=== PATIENT | male | born 1990 | race Caucasian/White ===

== ENCOUNTER 2023-04-08 03:34 | Emergency (ER) | payer OTHER ==
[2023-04-08] MEDS ORDERED: KETOROLAC 30 MG/ML INJ ONE (04:31)
[2023-04-08 04:42] LABS: Absolute Lymphocytes (CBC) 3.2 K/uL (0.7-4.9); Hematocrit 48.6 % (39.6-49.0); Lymphocytes % 41.8 % (15.3-44.8); MCV 81.5 fL (80-100); MPV 7.7 fL (7.6-11.3); RBC Red Blood Cell Count 5.96 M/uL (4.33-5.43)
[2023-04-08 04:45] LABS: Specific Gravity 1.015 (1.005-1.030); Urine Bacteria None Seen /HPF (<20); Urine Bilirubin NEGATIVE (Negative); Urine Blood 1+ (Negative); Urine Clarity Turbid (Clear); Urine Color Colorless (Yellow); Urine Glucose NEGATIVE (Negative); Urine Mucus Slight /HPF (None Seen); Urine Protein NEGATIVE (Negative); Urine RBC 21-50 /HPF (None Seen); Urine Urobilinogen Normal (Normal); Urine pH 7.5 (5.0-7.0)
[2023-04-08 05:02] LABS: Albumin 3.9 g/dL (3.4-5.0); Bilirubin Total 0.4 mg/dL (0.2-1.0); Potassium 2.9 mEq/L (3.5-5.1); Protein, Total 7.5 g/dL (6.4-8.2); Troponin High Sensitivity 36.1 pg/mL (<58.9)
[2023-04-08] MEDS ORDERED: ONDANSETRON 4 MG/2 ML VIAL ONE (05:35)
[2023-04-08] MEDS ORDERED: NA CHLORIDE 0.9% 1,000 ML ONE (05:35)
--- NOTE | 2023-04-08 06:54 | ER ---
Nurse's Notes [facility] Name: Nicol Courtney Age: 32 yrs Sex: Male : 1990 Arrival Date: 04/08/2023 Time: 03:34 Bed 13 Private MD: Diagnosis: Calculus of ureter Presentation: 04/08 03:44 Chief complaint: Patient states: "I was laying down going to bed and started having bad vc1 back pain that moved to my front then I started getting tingling on the left side of my face now it is on both legs and hands.". Coronavirus screen: Vaccine status: Patient reports being unvaccinated. Client denies travel out of the [place] in the last 14 days. At this time, the client does not indicate any symptoms associated with coronavirus-19. Ebola Screen: Patient negative for fever greater than or equal to 101.5 degrees Fahrenheit, and additional compatible Ebola Virus Disease symptoms Patient denies exposure to infectious person. Patient denies travel to an Ebola-affected area in the 21 days before illness onset. No symptoms or risks identified at this time. Initial Sepsis Screen: Does the patient meet any 2 criteria? RR > 20 per min. HR > 90 bpm. Yes Does the patient have a suspected source of infection? Yes: Acute abdominal pain. Risk Assessment: Do you want to hurt yourself or someone else? Patient reports no desire to harm self or others. Onset of symptoms was April 08, 2023. 03:44 Method Of Arrival: Ambulatory vc1 03:44 Acuity: AUGUST 3 vc1 Triage Assessment: 03:50 General: Appears uncomfortable, Behavior is anxious, restless. Pain: Complains of pain vc1 in left low back Pain radiates to left upper quadrant and left lower quadrant Pain currently is 10 out of 10 on a pain scale. Quality of pain is described as sharp. EENT: No deficits noted. No signs and/or symptoms were reported regarding the EENT system. Neuro: Level of Consciousness is awake, alert, obeys commands, Oriented to person, place, time, situation, Appropriate for age. Cardiovascular: No deficits noted. Respiratory: Airway is patent Respiratory effort is even, unlabored, Respiratory pattern is regular, symmetrical. GI: Reports lower abdominal pain, upper abdominal pain. : No deficits noted. No signs and/or symptoms were reported regarding the genitourinary system. Derm: No deficits noted. No signs and/or symptoms reported regarding the dermatologic system. Musculoskeletal: Reports pain in left low back. Historical: - Allergies: 03:48 No Known Allergies; vc1 - Home Meds: 03:48 Mydayis oral [Active]; vc1 - PMHx: 03:48 adhd; vc1 - PSHx: 03:48 None; vc1 - Immunization history:: Client reports having NOT received the Covid vaccine. - Social history:: Smoking status: Patient denies any tobacco usage or history of. - Family history:: not pertinent. Screenin:[facility] ED Fall Risk Assessment (Adult) History of falling in the last 3 months, vc1 including since admission No falls in past 3 months (0 pts) Confusion or Disorientation No (0 pts) Intoxicated or Sedated No (0 pts) Impaired Gait No (0 pts) Mobility Assist Device Used No (0 pt) Altered Elimination No (0 pt) Score/Fall Risk Level 0 - 2 = Low Risk Oriented to surroundings, Maintained a safe environment, Educated pt \\T\\ family on fall prevention, incl call for assistance when getting out of bed. Abuse screen: Denies threats or abuse. Nutritional screening: No deficits noted. Tuberculosis screening: No symptoms or risk factors identified. Assessment: 05:54 Reassessment: No changes from previously documented assessment. Patient and/or family vc1 updated on plan of care and expected duration. Pain level reassessed. Patient is alert, oriented x 3, equal unlabored respirations, skin warm/dry/pink. GI: Reports lower abdominal pain, upper abdominal pain, nausea. 06:45 Reassessment: No changes from previously documented assessment. Patient and/or family vc1 updated on plan of care and expected duration. Pain level reassessed. Patient is alert, oriented x 3, equal unlabored respirations, skin warm/dry/pink. 07:18 Reassessment: Patient states feeling better. Patient states symptoms have improved. vc1 Vital Signs: 03:44 BP 187 / 122; Pulse 102; Resp 24; Temp 98.9; Pulse Ox 100% ; Weight 117.93 kg; Height 6 vc1 ft. 4 in. ; Pain 10/10; 05:54 BP 179 / 122; Pulse 88; Resp 20; Pulse Ox 100% ; vc1 06:02 BP 163 / 108; Pulse 92; Resp 18; Pulse Ox 100% on R/A; jw7 03:44 Body Mass Index 31.65 (117.93 kg, 193.04 cm) vc1 03:44 Pain Scale: Adult vc1 ED Course: 03:35 Patient arrived in ED. ja2 03:35 Leighton Strange MD is Attending Physician. rt 03:44 Aniya Ramos, SUZY is Primary Nurse. vc1 03:48 Triage completed. vc1 03:50 Arm band placed on right wrist. vc1 03:51 Patient has correct armband on for positive identification. Bed in low position. Client vc1 placed on continuous cardiac and pulse oximetry monitoring. NIBP monitoring applied. 03:54 Inserted saline lock: 20 gauge in right forearm, using aseptic technique. Blood ha1 collected. 05:24 CT Abd/Pelvis - IV Contrast Only In Process Unspecified. EDMS 06:53 Missael Wilkes MD is Referral Physician. rt 07:18 No provider procedures requiring assistance completed. IV discontinued, intact, vc1 bleeding controlled, No redness/swelling at site. Pressure dressing applied. Administered Medications: 04:25 Drug: TORadol - Ketorolac IVP 15 mg Route: IVP; Site: right antecubital; vc1 07:20 Follow up: Response: No adverse reaction; Marked relief of symptoms vc1 05:19 CANCELLED (Patient Refused): morphine IVP or IV 4 mg IVP once over 4 mins kl 05:32 Drug: NS 0.9% IV 1000 ml Route: IV; Rate: 1 bolus; Site: right antecubital; ha1 06:32 Follow up: IV Status: Completed infusion; IV Intake: 1000ml vc1 05:32 Drug: Ondansetron IVP 4 mg Route: IVP; Site: right antecubital; ha1 07:20 Follow up: Response: No adverse reaction; Marked relief of symptoms vc1 Medication: 03:50 VIS not applicable for this client. vc1 Intake: 06:32 IV: 1000ml; Total: 1000ml. vc1 Outcome: 06:53 Discharge ordered by . rt 07:18 Discharged to home ambulatory. vc1 07:18 Condition: good 07:18 Discharge instructions given to patient, Instructed on discharge instructions, follow up and referral plans. medication usage, Demonstrated understanding of instructions, follow-up care, medications, Prescriptions given X 3. 07:18 Patient left the ED. vc1 Signatures: Dispatcher [employer] EDMS Macie Bangura2 Aniya Ramos RN RN vc1 Carla Norman7 Veronica Parker RN RN ha1 Leighton Strange MD MD rt Lewis, Kimberly RN kl Corrections: (The following items were deleted from the chart) 03:50 03:48 Home Meds: None; 1 1 03:50 03:48 PMHx: None; 1 1 03:50 03:48 PMHx: Mydayis; vc1 1
--- NOTE | 2023-04-08 06:54 | EDPHYS ---
Physician Documentation [facility] Name: Nicol Courtney Age: 32 yrs Sex: Male : 1990 Arrival Date: 04/08/2023 Time: 03:34 Bed 13 Private MD: ED Physician Leighton Strange HPI: 04/08 06:13 This 32 yrs old Male presents to ER via Ambulatory with complaints of Nausea, Back rt Pain, Chest Pain. 06:13 Patient presents to the ED with a left flank pain that radiates to the suprapubic rt region as well as nausea vomiting she attributes to the pain. This occurred at about 3 AM which woke him up from sleep. Is never had similar symptoms. Pain is sharp in nature, severe in severity, no other aggravating or elevating factors. Denies other acute complaints.. Historical: - Allergies: 03:48 No Known Allergies; vc1 - Home Meds: 03:48 Mydayis oral [Active]; vc1 - PMHx: 03:48 adhd; vc1 - PSHx: 03:48 None; vc1 - Immunization history:: Client reports having NOT received the Covid vaccine. - Social history:: Smoking status: Patient denies any tobacco usage or history of. - Family history:: not pertinent. ROS: 06:13 Constitutional: Negative for fever, chills, and weight loss, Cardiovascular: Negative rt for chest pain, palpitations, and edema, Skin: Negative for injury, rash, and discoloration, Neuro: Negative for headache, weakness, numbness, tingling, and seizure, Psych: Negative for depression, anxiety, suicide ideation, homicidal ideation, and hallucinations. 06:13 Abdomen/GI: Positive for abdominal pain, nausea and vomiting. 06:13 Back: Positive for flank pain, Negative for injury or acute deformity. Exam: 06:13 Respiratory: Lungs have equal breath sounds bilaterally, clear to auscultation and rt percussion. No rales, rhonchi or wheezes noted. No increased work of breathing, no retractions or nasal flaring. MS/ Extremity: Pulses equal, no cyanosis. Neurovascular intact. Full, normal range of motion. Neuro: Awake and alert, GCS 15, oriented to person, place, time, and situation. Cranial nerves II-XII grossly intact. Motor strength 5/5 in all extremities. Sensory grossly intact. Cerebellar exam normal. Normal gait. Psych: Awake, alert, with orientation to person, place and time. Behavior, mood, and affect are within normal limits. 06:13 Constitutional: The patient appears Diaphoretic, appears medicated stress 06:13 ECG was reviewed by the Attending Physician. 06:13 Abdomen/GI: Tenderness to the suprapubic, left costovertebral angle tenderness. Vital Signs: 03:44 BP 187 / 122; Pulse 102; Resp 24; Temp 98.9; Pulse Ox 100% ; Weight 117.93 kg; Height 6 vc1 ft. 4 in. ; Pain 10/10; 05:54 BP 179 / 122; Pulse 88; Resp 20; Pulse Ox 100% ; vc1 06:02 BP 163 / 108; Pulse 92; Resp 18; Pulse Ox 100% on R/A; jw7 03:44 Body Mass Index 31.65 (117.93 kg, 193.04 cm) vc1 03:44 Pain Scale: Adult vc1 MDM: 04:09 Patient medically screened. rt 04/08 03:59 Order name: Glucose, Ancillary Testing; Complete Time: 04:16 EDMS 04/08 04:24 Order name: CBC with Diff; Complete Time: 05:35 rt 04/08 04:24 Order name: CMP; Complete Time: 05:35 rt 04/08 04:24 Order name: Lipase; Complete Time: 05:35 rt 04/08 04:24 Order name: Urinalysis w/ reflexes; Complete Time: 05:35 rt 04/08 04:24 Order name: Troponin High Sensitivity; Complete Time: 05:35 rt 04/08 04:24 Order name: CT Abd/Pelvis - IV Contrast Only rt 04/08 04:24 Order name: IV Saline Lock; Complete Time: 05:38 rt 04/08 04:24 Order name: Labs collected and sent; Complete Time: 05:38 rt 04/08 04:26 Order name: EKG - Nurse/Tech; Complete Time: 04:26 vc1 EC:13 Rate is 99 beats/min. Rhythm is regular, Normal Sinus Rhythm with No ectopy. QRS [place] rt is Normal. AR interval is normal. QRS interval is normal. QT interval is normal. No Q waves. T waves are Normal. No ST changes noted. Administered Medications: 04:25 Drug: TORadol - Ketorolac IVP 15 mg Route: IVP; Site: right antecubital; vc1 07:20 Follow up: Response: No adverse reaction; Marked relief of symptoms vc1 05:19 CANCELLED (Patient Refused): morphine IVP or IV 4 mg IVP once over 4 mins kl 05:32 Drug: NS 0.9% IV 1000 ml Route: IV; Rate: 1 bolus; Site: right antecubital; ha1 06:32 Follow up: IV Status: Completed infusion; IV Intake: 1000ml vc1 05:32 Drug: Ondansetron IVP 4 mg Route: IVP; Site: right antecubital; ha1 07:20 Follow up: Response: No adverse reaction; Marked relief of symptoms vc1 Disposition Summary: 04/08/23 06:53 Discharge Ordered Location: Home rt Problem: new rt Symptoms: have improved rt Condition: Stable rt Diagnosis - Calculus of ureter rt Followup: rt - With: Missael Wilkes MD - When: 5 - 6 days - Reason: Discharge Instructions: - Discharge Summary Sheet rt - Kidney Stones rt Forms: - Medication Reconciliation Form rt - Thank You Letter rt - Antibiotic Education rt - Prescription Opioid Use rt - [email or web address] rt Prescriptions: - acetaminophen-codeine 300-30 mg Oral tablet - take 1 tablet by ORAL route every 6 hours; 18 tablet; Refills: 0, Product rt Selection Permitted - ondansetron 4 mg Oral Tablet,disintegrating - take 1 tablet by ORAL route every 6 hours as needed for nausea and vomiting; 18 rt tablet; Refills: 0, Product Selection Permitted - tamsulosin 0.4 mg Oral capsule - take 1 capsule by ORAL route every day at bedtime; 14 capsule; Refills: 0, rt Product Selection Permitted Signatures: Dispatcher [employer] Radha Mckay RN RN kl Calcote, Vanessa, RN RN vc1 Ayala, Heidy, RN RN ha1 [place], Ryan, MD MD rt Corrections: (The following items were deleted from the chart) 03:50 03:48 Home Meds: None; vc1 vc1 03:50 03:48 PMHx: None; vc1 vc1 03:50 03:48 PMHx: Mydayis; vc1 vc1 05:19 05:09 morphine IVP or IV 4 mg IVP once over 4 mins ordered. kl kl
[2023-04-08 07:42] VITALS: TEMP 98.9; O2SAT 100
[2023-04-08 07:44] VITALS: BP 163/108
--- NOTE | 2023-04-08 23:23 | RAD REPORT ---
EXAM DESCRIPTION: CT - Abdomen Pelvis W Contrast - 04/08/2023 7:08 am CLINICAL HISTORY: L flank pain TECHNIQUE: Contiguous axial images obtained through the abdomen and pelvis following the uneventful administration of IV contrast. Coronal and sagittal reformatted images were provided. This exam was performed according to our departmental dose-optimization program, which includes autom ated exposure control, adjustment of the mA and/or kV according to patient size and/or use of iterati ve reconstruction technique. COMPARISON: None available for comparison. FINDINGS: Lung bases: Clear Liver: Mild diffuse fatty infiltration of the liver. Gallbladder and biliary system: Unremarkable Pancreas: Unremarkable Spleen: Unremarkable Adrenals: Unremarkable Kidneys: 4 mm stone in the left UPJ with moderate left hydronephrosis. No additional renal stones. Bi lateral simple renal cysts the larger on the left measuring approximately 5.7 cm in diameter. GI: No obstruction. No appreciable mucosal thickening. Appendix: No findings to suggest acute appendicitis. Urinary bladder: Unremarkable Reproductive: Unremarkable as visualized Lymph nodes: Nonspecific mesenteric nodes in the right lower quadrant. Peritoneum: No focal fluid collection. No free air. Vessels: No abdominal aortic aneurysm. Abdominal wall: Unremarkable Bones: Unremarkable IMPRESSION: 1. 4 mm stone in the left UPJ with moderate left hydronephrosis. No additional renal s tones. 2. Mild diffuse fatty infiltration of the liver. Electronically signed by: Dwain Martin MD 04/08/2023 6:39 AM CDT Due to temporary technical issues with the PACS/Fluency reporting system, reports are being signed by the in house radiologists without review as a courtesy to insure prompt reporting. The interpreting radiologist is fully responsible for the content of the report.
--- NOTE | 2023-04-10 17:17 | EKG ---
Test Date: 2023-04-08 Test Time: 03:53:18 Delivery Engineer: HUMBERTO MEASUREMENT RESULTS: Intervals: Rate: 99 IA: 164 QRSD: 104 QT: 372 QTc: 477 [place]: P: 77 IA: 164 QRS: 71 T: 65 INTERPRETIVE STATEMENTS: Normal sinus rhythm Normal ECG No previous ECG available for comparison Electronically Signed On 04-10-23 17:13:49 CDT by Manfred Gibbs
== END 2023-04-08 07:18 | disposition home or self-care (01) ==
LOC: ER 03:34
DX: N20.1 Calculus of ureter (principal); R11.2 Nausea with vomiting, unspecified; R07.9 Chest pain, unspecified
CPT/HCPCS: 96361; 93005; 85025; 81001; 36415; 82947; 84484; 83690; 80053; 74177; 96375; 96374; 99284; Q9967; J2405; J7030